=== PATIENT | male | born 1965 | race African-American/Black ===

== ENCOUNTER 2016-11-10 15:35 | Emergency (ER) | payer OTHER ==
[~2016-11-10] VITALS: Ht 154.9 cm; Wt 68.0 kg
[2016-11-10 16:33] LABS: POTASSIUM 3.6 mmol/L (3.6-5.2); SODIUM 139 mmol/L (136-145)
[2016-11-10 16:42] LABS: PLATELET COUNT 65 K/uL (142-355)
[2016-11-10 17:45] VITALS: BP 116/59; TEMP 98
== END 2016-11-10 18:05 | disposition home or self-care (01) ==
LOC: ED 15:35
DX: T67.5XXA Heat exhaustion, unspecified, initial encounter (principal); X30.XXXA Exposure to excessive natural heat, initial encounter
CPT/HCPCS: 36415; 80053; 81000; 85027; 99283